=== PATIENT | female | born 1945 | race African-American/Black ===

== ENCOUNTER 2019-06-25 09:20 | Inpatient (IN) | payer BC, OTHER ==
[~2019-06-25] VITALS: Ht 162.6 cm; Wt 120.2 kg
[2019-06-25] MEDS ORDERED: IBUP-2029 PO (09:36)
[2019-06-25] MEDS ORDERED: ALBU18HF2 IH (09:36)
[2019-06-25] MEDS ORDERED: SODIUM CHLORIDE 0.9% 1,000 ML IV ONE (09:51)
[2019-06-25 11:39] LABS: CHLORIDE 111 mEq/L (98-107)
[2019-06-25 11:46] LABS: BASOPHILS % 0.8 % (0.0-2.0); EOSINOPHILS % 2.9 % (0.0-5.0); HEMATOCRIT. 39.5 % (36.0-48.0); HEMOGLOBIN. 12.5 g/dL (12.0-16.0); LYMPHOCYTES % 25.7 % (20.0-50.0); MEAN CORPUSCULAR HEMOGLOBIN 27.7 pg (28.0-32.0); MEAN CORPUSCULAR VOLUME 87.5 fL (81.0-99.0); MEAN PLATELET VOLUME 9.9 fl (7.4-10.4); MONOCYTES % 6.5 % (2.0-8.0); NEUTROPHILS % 64.1 % (40.0-76.0); PLATELET 151 x1000/uL (130-400); RED BLOOD CELL COUNT 4.52 mill/uL (4.2-5.4); RED CELL DISTRIBUTION WIDTH 13.3 % (11.6-14.6)
[2019-06-25 11:50] LABS: INR 1.2; PROTHROMBIN TIME 11.9 sec (9.6-11.0)
[2019-06-25] MEDS ORDERED: ASPIRIN 325MG EC TABLET PO ONE (12:30)
[2019-06-25] MEDS ORDERED: IOHEXOL-350 100 ML BOTTLE ONE (15:11)
[2019-06-25] MEDS ORDERED: ACETAMINOPHEN 325MG TABLET PO PRN (15:15)
[2019-06-25] MEDS ORDERED: ONDANSETRON HCL 4MG/2ML INJ IV PRN ×2 (15:15→23:30)
[2019-06-25] MEDS ORDERED: KETOROLAC 15MG/ML VIAL IV PRN (15:15)
[2019-06-25] MEDS ORDERED: IPRATROPIUM/ALBUTEROL 0.5-3(2.5)MG/3ML NEB HHN PRN (15:15)
[2019-06-25] MEDS: ENOXAPARIN 40MG/0.4ML SYR SUBCUT SCH (21:00)
[2019-06-25 23:12] VITALS: BP 114/70
[2019-06-25] MEDS: SODIUM CHLORIDE 0.9% 1,000 ML IV SCH (23:18)
[2019-06-25] MEDS ORDERED: IPRATROPIUM/ALBUTEROL 0.5-3(2.5)MG/3ML NEB NEB PRN (23:30)
[2019-06-25] MEDS ORDERED: MORPHINE SULFATE 2 MG/ML CPJ (NOT FOR IM USE) IV PRN (23:30)
[2019-06-25] MEDS ORDERED: LORAZEPAM 2MG/ML CPJ IV PRN (23:30)
[2019-06-25] MEDS ORDERED: HYDROCODONE/ACETAMINOPHEN 5/325MG TABLET PO PRN (23:30)
[2019-06-26] VITALS (7 sets, daily range): BP systolic 101–132; BP diastolic 56–99
[2019-06-26] MEDS: ENOXAPARIN 40MG/0.4ML SYR SUBCUT SCH (01:03)
[2019-06-26 06:42] LABS: BASOPHILS % 0.5 % (0.0-2.0); EOSINOPHILS % 1.3 % (0.0-5.0); HEMATOCRIT. 35.6 % (36.0-48.0); HEMOGLOBIN. 11.7 g/dL (12.0-16.0); LYMPHOCYTES % 31.5 % (20.0-50.0); MEAN CORPUSCULAR HEMOGLOBIN 28.3 pg (28.0-32.0); MEAN CORPUSCULAR VOLUME 86.4 fL (81.0-99.0); MEAN PLATELET VOLUME 9.9 fl (7.4-10.4); MONOCYTES % 10.9 % (2.0-8.0); NEUTROPHILS % 55.8 % (40.0-76.0); PLATELET 141 x1000/uL (130-400); RED BLOOD CELL COUNT 4.12 mill/uL (4.2-5.4); RED CELL DISTRIBUTION WIDTH 13.5 % (11.6-14.6)
[2019-06-26 06:45] LABS: CHLORIDE 112 mEq/L (98-107)
[2019-06-26 07:14] LABS: CREATINE KINASE 248 IU/L (26-192)
[2019-06-26 07:17] LABS: CREATINE KINASE MB FRACTION 7.3 ng/mL (0.5-3.6)
[2019-06-26] MEDS ORDERED: ENOXAPARIN 80MG/0.8ML SYR SUBCUT SCH (09:00)
[2019-06-26 11:53] LABS: INR 1.2; PARTIAL THROMBOPLASTIN TIME 30.7 sec (23.4-31.0); PROTHROMBIN TIME 12.3 sec (9.6-11.0)
[2019-06-26] MEDS ORDERED: HEPARIN BOLUS PRN aPTT 37-44 IV (12:15)
[2019-06-26] MEDS ORDERED: HEPARIN BOLUS PRN aPTT <36 IV (12:15)
[2019-06-26] MEDS ORDERED: HEPARIN 80 UNITS/KG BOLUS IV NR (12:15)
[2019-06-26 12:18] LABS: CLARITY URINE TURBID (CLEAR); COLOR URINE ORANGE (YELLOW); KETONES URINE TRACE (NEGATIVE); LEUKOCYTE ESTERASE URINE TRACE (NEGATIVE); NITRITE URINE POSITIVE (NEGATIVE); OCCULT BLOOD URINE 2+ (NEGATIVE); PH URINE 5.5 (4.5-8.0); PROTEIN URINE 1+ (NEGATIVE); SPECIFIC GRAVITY URINE 1.055 (1.005-1.030)
[2019-06-26 13:02] LABS: *BARBITURATES SCREEN URINE NEGATIVE (NEGATIVE); *BENZODIAZEPINES SCREEN URINE NEGATIVE (NEGATIVE); *COCAINE SCREEN URINE NEGATIVE (NEGATIVE); METHADONE URINE SCREEN NEGATIVE (NEGATIVE); OPIATES URINE SCREEN NEGATIVE (NEGATIVE)
[2019-06-26 13:03] LABS: *AMPHETAMINES SCREEN URINE NEGATIVE (NEGATIVE); CANNABINOID URINE SCREEN NEGATIVE (NEGATIVE); PHENCYCLIDINE URINE SCREEN NEGATIVE (NEGATIVE)
[2019-06-26] MEDS: HEPARIN 25,000 UNITS PREMIX 500 ML IV PRN (13:37)
[2019-06-26] MEDS ORDERED: BUDESONIDE 0.5MG/2ML NEB HHN SCH (16:00)
[2019-06-26] MEDS ORDERED: MONTELUKAST SODIUM 10MG TABLET PO SCH (17:00)
[2019-06-26 18:18] LABS: CREATINE KINASE MB FRACTION 6.4 ng/mL (0.5-3.6)
[2019-06-26] MEDS: SODIUM CHLORIDE 0.9% 1,000 ML IV SCH (20:26)
[2019-06-26] MEDS: FLUTICASONE PROPIONATE 50MCG/SPRAY BOTTLE BOTHNSTRLS SCH (21:50)
[2019-06-26] MEDS: BACITRACIN 15GM TUBE TOP SCH (21:50)
[2019-06-27] VITALS (9 sets, daily range): BP systolic 110–138; BP diastolic 51–91
[2019-06-27] MEDS: HEPARIN 25,000 UNITS PREMIX 500 ML IV PRN (06:15)
[2019-06-27] MEDS: FLUTICASONE PROPIONATE 50MCG/SPRAY BOTTLE BOTHNSTRLS SCH (08:17)
[2019-06-27] MEDS: BACITRACIN 15GM TUBE TOP SCH (08:17)
[2019-06-27 09:23] LABS: BASOPHILS % 0.8 % (0.0-2.0); EOSINOPHILS % 5.4 % (0.0-5.0); HEMATOCRIT. 38.1 % (36.0-48.0); HEMOGLOBIN. 12.2 g/dL (12.0-16.0); LYMPHOCYTES % 33.7 % (20.0-50.0); MEAN CORPUSCULAR VOLUME 87.5 fL (81.0-99.0); MEAN PLATELET VOLUME 10.1 fl (7.4-10.4); MONOCYTES % 6.5 % (2.0-8.0); NEUTROPHILS % 53.6 % (40.0-76.0); PLATELET 166 x1000/uL (130-400); RED BLOOD CELL COUNT 4.35 mill/uL (4.2-5.4); RED CELL DISTRIBUTION WIDTH 13.2 % (11.6-14.6)
[2019-06-27 09:30] LABS: CHLORIDE 108 mEq/L (98-107)
[2019-06-27] MEDS ORDERED: LEVOFLOXACIN 750MG PREMIX 150 ML IV SCH (10:45)
[2019-06-27] MEDS ORDERED: LEVOFLOXACIN 500MG TABLET PO SCH (11:00)
[2019-06-27] MEDS ORDERED: BISACODYL 5MG TABLET PO PRN (11:00)
[2019-06-27] MEDS ORDERED: DOCUSATE SODIUM 250MG CAPSULE PO SCH (11:00)
== END 2019-06-27 15:26 | disposition home or self-care (01) | DRG 871 ==
LOC: ER 10:57 → 3WST 13:50 → EDBEDREQSVC 14:06 → EDBEDREQ 14:06 → ENRESERV 18:59 → EDBEDREQTM 19:42 → EDBEDREQSVC 19:42 → ENRESERV 20:02
PROVIDERS: ADMIT Internal Medicine Nephrology; ATTEND Internal Medicine Nephrology
DX: A41.9 Sepsis, unspecified organism (principal); I26.99 Other pulmonary embolism without acute cor pulmonale; R57.8 Other shock; J96.00 Acute respiratory failure, unspecified whether with hypoxia or hypercapnia; E44.0 Moderate protein-calorie malnutrition; E87.2 Acidosis; D68.59 Other primary thrombophilia; N39.0 Urinary tract infection, site not specified; I82.413 Acute embolism and thrombosis of femoral vein, bilateral; I82.433 Acute embolism and thrombosis of popliteal vein, bilateral; Z68.42 Body mass index [BMI] 45.0-49.9, adult; I95.9 Hypotension, unspecified; E87.8 Other disorders of electrolyte and fluid balance, not elsewhere classified; E66.9 Obesity, unspecified; D25.9 Leiomyoma of uterus, unspecified; I51.9 Heart disease, unspecified; M19.90 Unspecified osteoarthritis, unspecified site; J45.909 Unspecified asthma, uncomplicated; Z88.1 Allergy status to other antibiotic agents; Z88.0 Allergy status to penicillin; Z82.49 Family history of ischemic heart disease and other diseases of the circulatory system; Z88.8 Allergy status to other drugs, medicaments and biological substances; Z79.899 Other long term (current) drug therapy; Z90.49 Acquired absence of other specified parts of digestive tract; Z87.891 Personal history of nicotine dependence
CPT/HCPCS: 36415; 71045; 71275; 80048; 80053; 80061; 80305; 81003; 82550; 82553; 83605; 84145; 84443; 84484; 85025; 85384; 93005; 93306; 93970; 94640; 96360; 96361; 97162; 99285; J1644; J1650; J7030; J7626; Q9967